=== PATIENT | male | born 1950 | race Caucasian/White ===

== ENCOUNTER 2017-03-06 09:12 | Emergency (ER) | payer OTHER ==
[2017-03-06 09:20] VITALS: O2SAT 97
[2017-03-06 10:23] LABS: PLATELET COUNT 270 10^3/uL (150-400)
--- NOTE | 2017-03-06 10:36 | EDPHY ---
General Narrative: CHIEF COMPLAINT: Three months of muscle pain and weakness HISTORY OF PRESENT ILLNESS: Patient complains of 3 months history of pain in the shoulders, hips, knees and all of his muscles. He also has some weakness in these areas. He describes it as feeling difficulty doing is activity and exercise. He has no actual weakness but he feels weak when he moves. No numbness or tingling. No incontinence of bowel or bladder. No headache. No neck pain. No trauma or injury. No formal evaluation for this. He has contacted a new physician at [facility] to be seen on Tuesday as he just relocated this area. No other associated complaints or modifying factors. REVIEW OF SYSTEMS: Ten systems reviewed and are negative unless otherwise noted in the HPI PCP: New [facility] physician on Tuesday SPECIALISTS: None PAST MEDICAL HISTORY: No medical history PAST SURGICAL HISTORY: No surgical history SOCIAL HISTORY: Nonsmoker. No alcohol or drug use. FAMILY HISTORY: Noncontributory EXAMINATION General Appearance: Alert, no distress Head: normocephalic, atraumatic Eyes: Pupils equal and round, no conjunctival pallor or injection ENT, Mouth: Mucous membranes moist. Airway patent Neck: Normal inspection, supple, non-tender. No meningismus. Respiratory: Lungs are clear to auscultation Cardiovascular: Regular rate and rhythm. No murmur Gastrointestinal: Abdomen is soft and nontender Back: non-tender, no bony abnormalities Neurological: GCS 15. Cranial nerves 2-12 grossly intact. A&O, nonfocal, normal gait. Strength is 5/5 in all 4 limbs. No pronator drift. No dysmetria. Patellar reflexes 2+. Skin: Warm and dry, no rash. No petechiae or purpura Extremities: Nontender, no pedal edema Psychiatric: Mood and affect normal DIFFERENTIAL DIAGNOSES: Including but not limited to polymyositis, dermatomyositis, myositis, rhabdomyolysis MDM: 10:15 a.m. Proximal musculature pain, proceed weakness and difficulty performing his activities of daily living an exercise. Patient is well-appearing with normal examination including neuro intact with excellent strength. Vital signs are stable. Suspect an autoimmune or auto inflammatory response. I have ordered laboratory studies including a CK. He is in no acute distress. Case discussed with Dr. Dowell. 11:10 a.m. Laboratory studies are within normal limits with very mild leukocytosis without shift. I suspect this is autoimmune or inflammatory. I will trial him with short burst of steroid therapy. He has an appointment on Tuesday with a new primary care physician at [facility] that he will keep. This has been ongoing for several months and I do not feel this is an emergent or worrisome scenario that would warrant any further imaging or care. He is comfortable this plan. He is discharged home stable condition with ED precautions. SUPERVISION: Patient was independently examined, but I discussed the case with my secondary supervising physician Dr. Dowell - History Smoking Status: Never smoked - Objective Vital Signs: Initial Vital Signs Heart Rate 69 03/06/17 09:15 Respiratory Rate 16 03/06/17 09:15 Blood Pressure 158/77 H 03/06/17 09:15 O2 Sat (%) 97 03/06/17 09:15 O2 Delivery Mode Room Air Allergies/Adverse Reactions: No Known Drug Allergies Allergy (Verified 03/06/17 09:20) Home Medications: Medication Instructions Recorded predniSONE [Deltasone] 60 mg PO DAILY #15 tablet 03/06/17 Departure - Departure Disposition: Home, Routine, Self-Care Clinical Impression: Muscular pain Myositis Qualifiers: Myositis type: unspecified type Myositis location: multiple sites Qualified Code(s): M60.9 - Myositis, unspecified Condition: Good Instructions: Polymyositis (ED) Additional Instructions: 1. Medications as prescribed to completion 2. Keep your appointment on Tuesday with physician for further workup 3. ED precautions as discussed Referrals: [facility] ,. [Edm Groups for Call Sched] - As per Instructions Prescriptions: predniSONE [Deltasone] 60 mg PO DAILY #15 tablet
[2017-03-06 10:43] LABS: CREATINE KINASE 53 IU/L (0-224)
[2017-03-06 11:54] VITALS: BP 126/79; PULSE 64; RESP 18; TEMP 98.1
== END 2017-03-06 11:54 | disposition home or self-care (01) ==
DX: M60.9 Myositis, unspecified (principal)